=== PATIENT | male | born 1965 | race Two or more races ===

== ENCOUNTER 2016-10-28 12:53 | Emergency (ER) | payer OTHER ==
[2016-10-28] MEDS ORDERED: CEFAZOLIN INJ 1 GM VIAL IV ONE (14:36)
--- NOTE | 2016-10-28 14:37 | ER Document Report ---
ED Medical Screen (RME) - General Chief Complaint: Finger Injury Stated Complaint: FINGER INJURY Time Seen by Provider: 10/28/16 14:35 Notes: Patient suffered a crush injury from a vibratory hammer at work. He initially went to urgent care where x-ray shows an open fracture. Patient was sent to the emergency department for evaluation. Injuries to the right thumb. TRAVEL OUTSIDE OF THE [place] IN LAST 30 DAYS: No - Related Data Allergies/Adverse Reactions: No Known Allergies Allergy (Verified 10/28/16 13:10) Past Medical History - Social History Chew tobacco use (# tins/day): No Frequency of alcohol use: None Drug Abuse: None Renal/ Medical History: Denies: Hx Peritoneal Dialysis Past Surgical History: Reports: Hx Cholecystectomy, Hx Orthopedic Surgery - puja achilles tendon repair, mediscus left - Immunizations Hx Diphtheria, Pertussis, Tetanus Vaccination: No Physical Exam - Vital signs Vitals: Temp Pulse Resp BP Pulse Ox 98.4 F 88 16 124/88 H 96 10/28/16 13:07 10/28/16 13:07 10/28/16 13:07 10/28/16 13:07 10/28/16 13:07 Course - Vital Signs Vital signs: Temp Pulse Resp BP Pulse Ox 98.4 F 88 16 124/88 H 96 10/28/16 13:07 10/28/16 13:07 10/28/16 13:07 10/28/16 13:07 10/28/16 13:07
[2016-10-28] MEDS ORDERED: LIDOCAINE 1% INJ-PF (10 MG/ML) 30 ML SDV INJ ONE (17:27)
[2016-10-28] MEDS ORDERED: BUPIVACAINE HCL 0.5 % INJ/PF 30 ML SDV INJ ONE (17:33)
--- NOTE | 2016-10-28 18:23 | ER Document Report ---
ED Hand/Wrist Injury - General Chief Complaint: Finger Injury Stated Complaint: FINGER INJURY Time Seen by Provider: 10/28/16 14:35 TRAVEL OUTSIDE OF THE [place] IN LAST 30 DAYS: No - HPI Notes: 51-year-old right-hand dominant male with up-to-date tetanus presents with injury to his right thumb. He was using a mechanical hammer when he injured his right distal thumb. Seen at urgent care noted to have an open fracture so sent to the emergency department. He has moderate pain at the fingertip. Denies any other injury otherwise. Some slight decreased sensation. - Related Data Allergies/Adverse Reactions: No Known Allergies Allergy (Verified 10/28/16 13:10) Past Medical History - Social History Smoking Status: Current Every Day Smoker Chew tobacco use (# tins/day): No Frequency of alcohol use: None Drug Abuse: None Family History: None, Reviewed & Not Pertinent Renal/ Medical History: Denies: Hx Peritoneal Dialysis Past Surgical History: Reports: Hx Cholecystectomy, Hx Orthopedic Surgery - puja achilles tendon repair, mediscus left - Immunizations Hx Diphtheria, Pertussis, Tetanus Vaccination: No Review of Systems - Review of Systems Notes: Patient denies other injury or pain proximal to the right thumb. Physical Exam - Vital signs Vitals: Temp Pulse Resp BP Pulse Ox 98.4 F 88 16 124/88 H 96 10/28/16 13:07 10/28/16 13:07 10/28/16 13:07 10/28/16 13:07 10/28/16 13:07 - Notes Notes: PHYSICAL EXAMINATION: GENERAL: VS as per nursing doc. Well-appearing, well-nourished no acute distress. HEAD: Atraumatic, normocephalic. EYES: Anicteric without conjunctival injection. ENT: Normal to inspection, moist mucous membranes. NECK: Supple with grossly normal range of motion. LUNGS: Normal respiratory excursion without distress. HEART: Cap refill < 3 seconds distally. EXTREMITIES: See skin. There is some volar angulation of the distal fingertip of the right thumb. NEUROLOGICAL: Slight decreased distal two-point discrimination. PSYCH: Normal mood, normal affect. SKIN: There is laceration extending through the base of the nailbed from the radial to ulnar side of the thumb but does not extend to the volar pad. Extends to the base of the nailbed with complete nail avulsion though the nail appears predominantly intact. Course - Re-evaluation Re-evalutation: 10/28/16 18:25 I discussed with the patient potential for loss of fingertips though Refill actually seems pretty good. He understands the nail will be lost. The Vicryl sutures obviously will not need removal but the other 3 sutures will need removal in approximately 14 days. He has been placed on prophylactic Keflex. - Vital Signs Vital signs: Temp Pulse Resp BP Pulse Ox 97.7 F 68 14 136/80 H 100 10/28/16 19:18 10/28/16 19:18 10/28/16 19:18 10/28/16 19:18 10/28/16 19:18 Procedures - Laceration/Wound Repair Right Thumb Time completed: 18:28 Wound length (cm): 2.5 Wound's Depth, Shape: Linear, Stellate, Nail-avulsed Laceration pre-procedure: Betadine prep applied, Sterile drapes applied Anesthetic type: 0.5% Bupivacaine Wound explored: Clean Irrigated w/ Saline (mLs): 200 Wound Repaired With: Sutures Suture Size/Type: 4:0, Ethilon Number of Sutures: 3 - 3 4-0 Vicryl sutures were placed to the base of the nailbed and the nailbed repeat placed. Post-procedure wound care: Sterile dressing applied, Splint applied Post-procedure NV exam normal: Yes Complications: No Notes: 10/28/16 18:30 The nail was sutured back in place after being cleaned. Finger is being splinted in extension. Dr. Bean is the orthopedist on-call for follow-up. Discharge - Discharge Clinical Impression: Fingernail avulsion, complete, Laceration of thumb Condition: Good Disposition: HOME, SELF-CARE Instructions: Laceration Care ([facility]), Prophylactic Antibiotic ([facility]) Additional Instructions: Keep finger protected. Wound check in [address] Bean, the orthopedist or here if needed. Sutures out in 10-14 days depending on healing. Take the antibiotics as directed. Return for any signs of infection or other concern Prescriptions: Cephalexin Monohydrate [Keflex 500 mg Capsule] 500 mg PO Q6H 5 Days #20 capsule Referrals: BRONSON HARRIS MD [ACTIVE STAFF] - 10/30/16 Scribe Attestation: 10/29/16 19:13 I personally performed the services described in the documentation, reviewed and edited the documentation which was dictated to the scribe in my presence, and it accurately records my words and actions.
[2016-10-28 19:19] VITALS: BP 136/80
== END 2016-10-28 19:21 | disposition home or self-care (01) ==
LOC: ER 12:53
PROC: 0HQFXZZ Repair Right Hand Skin, External Approach (ICD-10-PCS; principal; 2016-10-28)
DX: S69.91XA Unspecified injury of right wrist, hand and finger(s), initial encounter (principal); W22.8XXA Striking against or struck by other objects, initial encounter; F17.200 Nicotine dependence, unspecified, uncomplicated
CPT/HCPCS: 99283; 96365; 12001; J0690